=== PATIENT | male | born 1995 | race Caucasian/White ===

== ENCOUNTER 2022-12-22 20:56 | Emergency (ER) | payer OTHER, SELFPAY ==
--- NOTE | 2022-12-22 21:18 | ED.PSYCH ---
HPI - Psych General Time Seen by Provider: 21:18 <Bretha Lang MD - Last Filed: 12/24/22 10:17> Date Seen: 12/22/22 <Bertha Lang MD - Last Filed: 12/24/22 10:17> Chief Complaint: Psychiatric Problem/Disorder <Bertha Lang MD - Last Filed: 12/24/22 10:17> Stated Complaint: Suicidal <Bertha Lang MD - Last Filed: 12/24/22 10:17> Time Seen by Provider: 12/22/22 21:17 <Bertha Lang MD - Last Filed: 12/24/22 10:17> Source: patient <Bertha Lang MD - Last Filed: 12/24/22 10:17> Mode of arrival: ambulatory <Bertha Lang MD - Last Filed: 12/24/22 10:17> Limitations: no limitations <Bertha Lang MD - Last Filed: 12/24/22 10:17> History of Present Illness HPI Narrative: This 27-year-old male is coming in with concern of suicidal ideation with plan. He states he could not be alone at home anymore. He was thinking this weekend that he was going to purchase a gun and had plans to shoot himself. He has had some recent stressors. He broke up with a girlfriend earlier in the year, felt he was maybe using her as a crutch for his mental health. She just recently started dating someone in it has become very difficult for him to deal with, he feels quite emotional about it, is mad at himself, realizes the finality of his relationship with her. He does not do any cutting, notes he will punch himself for emotional release. He did graduate from [employer], went to the [facility] but dropped out after about a urine half I believe he said. He has just been working since then. Recently did start a new job. He states he has had a history of anxiety and depression. Admits that he attempted to kill himself in 2016 by trying to strangle himself with a blanket. In 2018 he states he took a whole bunch of apjp-bvm-[id number] medicines, went to bed that night and fortunately did wake up. He was never evaluated for any of these. He has never been hospitalized for his mental health. He has not drank alcohol for a couple months. He does admit that he has been taking Adderall which she has been purchasing from people, believes he has ADHD and will be tested for this in about a month and a half. He actually feels that the Adderall does help stabilize him and his anxiety. He initially purchased a 30 mg tablet and and was likely too high of a dose, had too many side effects. He took a 10 mg today which he did purchase from a friend and seems much better. He denies any other illicit drug use. <Bertha Lang MD - Last Filed: 12/24/22 10:17> complaint: suicidal ideation and feels depressed <Bertha Lang MD - Last Filed: 12/24/22 10:17> Related Data Home Medications: Home Medications Medication Instructions Recorded Confirmed No Known Home Medications 12/22/22 12/22/22 <Bertha Lang MD - Last Filed: 12/24/22 10:17> Allergies/Adverse Reactions: Allergies Allergy/AdvReac Type Severity Reaction Status Date / Time No Known Drug Allergies Allergy Verified 12/22/22 21:38 <Bertha Lang MD - Last Filed: 12/24/22 10:17> Review of Systems Status of ROS: Reports: 6 or more systems reviewed and unremarkable except as noted in History and below <Bertha Lang MD - Last Filed: 12/24/22 10:17> [facility] Social History: Social History Smoking Status: Never smoker How often do you have a drink containing alcohol: never AUDIT-C Alcohol total score: 0 Non-prescribed substance use: denies use <Bertha Lang MD - Last Filed: 12/24/22 10:17> Exam Const: Vital Signs, click to edit/add: Vital Signs - 24 hr 12/22/22 21:39 12/23/22 02:52 12/23/22 04:00 Temperature 97.8 F 97.5 F L Pulse Rate [Pulse Oximeter] 83 67 Respiratory Rate 14 16 Blood Pressure [Ri ght Upper Arm] 148/106 H 161/90 H 134/73 Pulse Oximetry 97 98 Oxygen Delivery Me thod Room Air Room Air This is a 27-year-old male that is alert, interactive, no apparent distress, very well kept. Speech is maybe a little fast and pressured, does have good eye contact. He smiles appropriately at times. Seems bit more anxious the necessarily depressed on my initial evaluation of him. Certainly does endorse suicidal ideation. Wearing glasses, conjugate gaze, sclerae are clear. Symmetrical facial function. Neck is supple, no masses, no thyromegaly masses or nodules. Lungs are clear, good air entry, no wheezing crackles. CV regular rate and rhythm, no murmur, normal S1-S2. No wound stover noted on his arms, wearing a short sleeve shirt. Is ambulatory into the ED of his own accord. <Bertha Lang MD - Last Filed: 12/24/22 10:17> Vital Signs, click to edit/add: Vital Signs - 24 hr 12/22/22 21:39 12/23/22 02:52 12/23/22 04:00 Temperature 97.8 F 97.5 F L Pulse Rate [Pulse Oximeter] 83 67 Respiratory Rate 14 16 Blood Pressure [Ri ght Upper Arm] 148/106 H 161/90 H 134/73 Pulse Oximetry 97 98 Oxygen Delivery Me thod Room Air Room Air <Antonia Angel MD - Last Filed: 12/24/22 08:30> Vital Signs, click to edit/add: Vital Signs - 24 hr 12/22/22 21:39 12/23/22 02:52 12/23/22 04:00 Temperature 97.8 F 97.5 F L Pulse Rate [Pulse Oximeter] 83 67 Respiratory Rate 14 16 Blood Pressure [Ri ght Upper Arm] 148/106 H 161/90 H 134/73 Pulse Oximetry 97 98 Oxygen Delivery Me thod Room Air Room Air <Jaymie Echols MD - Last Filed: 12/23/22 04:22> Documenting provider has reviewed patient's vital signs: yes <Bertha Lang MD - Last Filed: 12/24/22 10:17> Course Course ED Course: Patient needs a telehealth evaluation. We did discuss the process. Understands that he does need to provide blood work in urine to do testing in case he might need inpatient stabilization. He agrees to safety here, is here currently voluntarily. <Bertha Lang MD - Last Filed: 12/24/22 10:17> Patient needs a telehealth evaluation. We did discuss the process. Understands that he does need to provide blood work in urine to do testing in case he might need inpatient stabilization. He agrees to safety here, is here currently voluntarily. Patient was signed out to me by Dr. Matthews to follow up on labs and DEC assessment. I spoke with the DEC land checker, she does agree that he is high risk with a stated plan of proceeding a gun to shoot himself. She feels he needs inpatient placement. Labs are unremarkable, urinalysis is consistent with the ADHD med that he says he has been buying, otherwise negative. Tylenol, aspirin and alcohol levels all negative, COVID negative as well. Patient has remained cooperative here, voluntary at this time. <Antonia Angel MD - Last Filed: 12/24/22 08:30> Reevaluation(s) Time of Reevaluation #1: 04:21 <Jaymie Echols MD - Last Filed: 12/23/22 04:22> Reevaluation #1: Dr. Echols: Patient transferred to [facility] for inpatient treatment with no complications. Needed no further intervention nor changes to plan of care during my shift. <Jaymie Echols MD - Last Filed: 12/23/22 04:22> Vital Signs Vital signs: Initial Vital Signs Temperature 97.8 F 12/22/22 21:39 Temperature Source Temporal Artery Scan 12/22/22 21:39 Pulse Rate 83 12/22/22 21:39 Pulse Rhythm Regular 12/22/22 21:39 Respiratory Rate 14 12/22/22 21:39 Blood Pressure 148/106 H 12/22/22 21:39 Blood Pressure Mean 120 H 12/22/22 21:39 Blood Pressure Position Sitting 12/22/22 21:39 Pulse Oximetry 97 12/22/22 21:39 Oxygen Delivery Method Room Air 12/22/22 21:39 Vital Signs Temperature 97.8 F 12/22/22 21:39 Pulse Rate 83 12/22/22 21:39 Respiratory Rate 14 12/22/22 21:39 Blood Pressure 148/106 H 12/22/22 21:39 Pulse Oximetry 97 12/22/22 21:39 Oxygen Delivery Method Room Air 12/22/22 21:39 Temperature 97.5 F L 12/23/22 04:00 Pulse Rate 67 12/23/22 04:00 Respiratory Rate 16 12/23/22 04:00 Blood Pressure 134/73 12/23/22 04:00 Pulse Oximetry 98 12/23/22 04:00 Oxygen Delivery Method Room Air 12/23/22 04:00 <Bertha Lang MD - Last Filed: 12/24/22 10:17> Initial Vital Signs Temperature 97.8 F 12/22/22 21:39 Temperature Source Temporal Artery Scan 12/22/22 21:39 Pulse Rate 83 12/22/22 21:39 Pulse Rhythm Regular 12/22/22 21:39 Respiratory Rate 14 12/22/22 21:39 Blood Pressure 148/106 H 12/22/22 21:39 Blood Pressure Mean 120 H 12/22/22 21:39 Blood Pressure Position Sitting 12/22/22 21:39 Pulse Oximetry 97 12/22/22 21:39 Oxygen Delivery Method Room Air 12/22/22 21:39 Vital Signs Temperature 97.8 F 12/22/22 21:39 Pulse Rate 83 12/22/22 21:39 Respiratory Rate 14 12/22/22 21:39 Blood Pressure 148/106 H 12/22/22 21:39 Pulse Oximetry 97 12/22/22 21:39 Oxygen Delivery Method Room Air 12/22/22 21:39 Temperature 97.5 F L 12/23/22 04:00 Pulse Rate 67 12/23/22 04:00 Respiratory Rate 16 12/23/22 04:00 Blood Pressure 134/73 12/23/22 04:00 Pulse Oximetry 98 12/23/22 04:00 Oxygen Delivery Method Room Air 12/23/22 04:00 <Antonia Angel MD - Last Filed: 12/24/22 08:30> Initial Vital Signs Temperature 97.8 F 12/22/22 21:39 Temperature Source Temporal Artery Scan 12/22/22 21:39 Pulse Rate 83 12/22/22 21:39 Pulse Rhythm Regular 12/22/22 21:39 Respiratory Rate 14 12/22/22 21:39 Blood Pressure 148/106 H 12/22/22 21:39 Blood Pressure Mean 120 H 12/22/22 21:39 Blood Pressure Position Sitting 12/22/22 21:39 Pulse Oximetry 97 12/22/22 21:39 Oxygen Delivery Method Room Air 12/22/22 21:39 Vital Signs Temperature 97.8 F 12/22/22 21:39 Pulse Rate 83 12/22/22 21:39 Respiratory Rate 14 12/22/22 21:39 Blood Pressure 148/106 H 12/22/22 21:39 Pulse Oximetry 97 12/22/22 21:39 Oxygen Delivery Method Room Air 12/22/22 21:39 Temperature 97.5 F L 12/23/22 04:00 Pulse Rate 67 12/23/22 04:00 Respiratory Rate 16 12/23/22 04:00 Blood Pressure 134/73 12/23/22 04:00 Pulse Oximetry 98 12/23/22 04:00 Oxygen Delivery Method Room Air 12/23/22 04:00 <Jaymie Echols MD - Last Filed: 12/23/22 04:22> MDM - Psych Lab Data Labs: Lab Results 12/22/22 12/22/22 Range/Units 21:40 21:49 WBC 8.67 (4.50-11.00) K/uL RBC 5.76 (4.30-5.90) m/uL Hgb 16.3 (13.5-17.5) gm/dL Hct 47.9 (37.0-53.0) % MCV 83 (80-100) fL MCH 28 (26-34) pg MCHC 34 (32-36) gm/dL RDW Coeff of Zenia 12.5 (11.5-15.5) % Plt Count 244 (140-440) K/uL Neut % (Auto) 65.2 (42.0-72.0) % Lymph % (Auto) 23.1 (20-44) % [place] % (Auto) 9.9 (0.0-11.0) % Eos % (Auto) 0.8 (0.0-7.0) % Baso % (Auto) 0.1 (0.0-3.0) % Neut # (Auto) 5.65 (1.7-7.0) K/uL Lymph # (Auto) 2.00 (0.90-2.90) K/uL [place] # (Auto) 0.90 (0.00-0.90) K/UL Eos # (Auto) 0.07 (0.00-0.50) K/uL Baso # (Auto) 0.01 (0.00-0.30) K/uL Abs Immat Gran (auto) 0.08 (0.00-0.30) K/uL Imm/Tot Granulo (auto) 0.9 % Sodium 139 (135-149) mmol/L Potassium 4.0 (3.6-5.1) mmol/L Chloride 103 (96-114) mmol/L Carbon Dioxide 27 (20-32) mmol/L Anion Gap 9 (7-15) mEq/L BUN 15 (5-24) mg/dL Creatinine 1.2 (0.5-1.5) mg/dL Estimated Creat Clear 97.16 Estimated GFR 86 ml/min Glucose 92 (60-115) mg/dL Calcium 10.3 (8.4-10.6) mg/dL Total Bilirubin 0.7 (0.1-1.5) mg/dL AST 28 (12-35) U/L ALT 26 (4-50) U/L Alkaline Phosphatase 70 (40-150) U/L Total Protein 8.1 (6.0-8.3) g/dL Albumin 4.9 (3.3-5.0) g/dL TSH 2.510 (0.270-4.200) uIU/mL Salicylates < 1.0 L (1.0-10) mg/dL Urine Opiates Screen Negative (Negative) Ur Oxycodone Screen Negative (Negative) Urine Methadone Screen Negative (Negative) Ur Propoxyphene Screen Negative (Negative) Acetaminophen < 10.0 L (10.0-30.0) ug/mL Ur Barbiturates Screen Negative (Negative) U Tricyclic Antidepress Negative (Negative) Ur Phencyclidine Scrn Negative (Negative) Ur Amphetamines Screen POSITIVE A (Negative) U Methamphetamines Scrn Negative (Negative) U Benzodiazepines Scrn Negative (Negative) Urine Cocaine Screen Negative (Negative) U Marijuana (THC) Screen Negative (Negative) Ur Drug Screen Comment See Note Ethyl Alcohol < 0.01 L (0.01-0.03) % SARS-CoV-2 (PCR) Negative SARS-CoV-2 (Negative) <Bertha Lang MD - Last Filed: 12/24/22 10:17> Lab Results 12/22/22 12/22/22 Range/Units 21:40 21:49 WBC 8.67 (4.50-11.00) K/uL RBC 5.76 (4.30-5.90) m/uL Hgb 16.3 (13.5-17.5) gm/dL Hct 47.9 (37.0-53.0) % MCV 83 (80-100) fL MCH 28 (26-34) pg MCHC 34 (32-36) gm/dL RDW Coeff of Zenia 12.5 (11.5-15.5) % Plt Count 244 (140-440) K/uL Neut % (Auto) 65.2 (42.0-72.0) % Lymph % (Auto) 23.1 (20-44) % [place] % (Auto) 9.9 (0.0-11.0) % Eos % (Auto) 0.8 (0.0-7.0) % Baso % (Auto) 0.1 (0.0-3.0) % Neut # (Auto) 5.65 (1.7-7.0) K/uL Lymph # (Auto) 2.00 (0.90-2.90) K/uL [place] # (Auto) 0.90 (0.00-0.90) K/UL Eos # (Auto) 0.07 (0.00-0.50) K/uL Baso # (Auto) 0.01 (0.00-0.30) K/uL Abs Immat Gran (auto) 0.08 (0.00-0.30) K/uL Imm/Tot Granulo (auto) 0.9 % Sodium 139 (135-149) mmol/L Potassium 4.0 (3.6-5.1) mmol/L Chloride 103 (96-114) mmol/L Carbon Dioxide 27 (20-32) mmol/L Anion Gap 9 (7-15) mEq/L BUN 15 (5-24) mg/dL Creatinine 1.2 (0.5-1.5) mg/dL Estimated Creat Clear 97.16 Estimated GFR 86 ml/min Glucose 92 (60-115) mg/dL Calcium 10.3 (8.4-10.6) mg/dL Total Bilirubin 0.7 (0.1-1.5) mg/dL AST 28 (12-35) U/L ALT 26 (4-50) U/L Alkaline Phosphatase 70 (40-150) U/L Total Protein 8.1 (6.0-8.3) g/dL Albumin 4.9 (3.3-5.0) g/dL TSH 2.510 (0.270-4.200) uIU/mL Salicylates < 1.0 L (1.0-10) mg/dL Urine Opiates Screen Negative (Negative) Ur Oxycodone Screen Negative (Negative) Urine Methadone Screen Negative (Negative) Ur Propoxyphene Screen Negative (Negative) Acetaminophen < 10.0 L (10.0-30.0) ug/mL Ur Barbiturates Screen Negative (Negative) U Tricyclic Antidepress Negative (Negative) Ur Phencyclidine Scrn Negative (Negative) Ur Amphetamines Screen POSITIVE A (Negative) U Methamphetamines Scrn Negative (Negative) U Benzodiazepines Scrn Negative (Negative) Urine Cocaine Screen Negative (Negative) U Marijuana (THC) Screen Negative (Negative) Ur Drug Screen Comment See Note Ethyl Alcohol < 0.01 L (0.01-0.03) % SARS-CoV-2 (PCR) Negative SARS-CoV-2 (Negative) <Antonia Angel MD - Last Filed: 12/24/22 08:30> Lab Results 12/22/22 12/22/22 Range/Units 21:40 21:49 WBC 8.67 (4.50-11.00) K/uL RBC 5.76 (4.30-5.90) m/uL Hgb 16.3 (13.5-17.5) gm/dL Hct 47.9 (37.0-53.0) % MCV 83 (80-100) fL MCH 28 (26-34) pg MCHC 34 (32-36) gm/dL RDW Coeff of Zenia 12.5 (11.5-15.5) % Plt Count 244 (140-440) K/uL Neut % (Auto) 65.2 (42.0-72.0) % Lymph % (Auto) 23.1 (20-44) % [place] % (Auto) 9.9 (0.0-11.0) % Eos % (Auto) 0.8 (0.0-7.0) % Baso % (Auto) 0.1 (0.0-3.0) % Neut # (Auto) 5.65 (1.7-7.0) K/uL Lymph # (Auto) 2.00 (0.90-2.90) K/uL [place] # (Auto) 0.90 (0.00-0.90) K/UL Eos # (Auto) 0.07 (0.00-0.50) K/uL Baso # (Auto) 0.01 (0.00-0.30) K/uL Abs Immat Gran (auto) 0.08 (0.00-0.30) K/uL Imm/Tot Granulo (auto) 0.9 % Sodium 139 (135-149) mmol/L Potassium 4.0 (3.6-5.1) mmol/L Chloride 103 (96-114) mmol/L Carbon Dioxide 27 (20-32) mmol/L Anion Gap 9 (7-15) mEq/L BUN 15 (5-24) mg/dL Creatinine 1.2 (0.5-1.5) mg/dL Estimated Creat Clear 97.16 Estimated GFR 86 ml/min Glucose 92 (60-115) mg/dL Calcium 10.3 (8.4-10.6) mg/dL Total Bilirubin 0.7 (0.1-1.5) mg/dL AST 28 (12-35) U/L ALT 26 (4-50) U/L Alkaline Phosphatase 70 (40-150) U/L Total Protein 8.1 (6.0-8.3) g/dL Albumin 4.9 (3.3-5.0) g/dL TSH 2.510 (0.270-4.200) uIU/mL Salicylates < 1.0 L (1.0-10) mg/dL Urine Opiates Screen Negative (Negative) Ur Oxycodone Screen Negative (Negative) Urine Methadone Screen Negative (Negative) Ur Propoxyphene Screen Negative (Negative) Acetaminophen < 10.0 L (10.0-30.0) ug/mL Ur Barbiturates Screen Negative (Negative) U Tricyclic Antidepress Negative (Negative) Ur Phencyclidine Scrn Negative (Negative) Ur Amphetamines Screen POSITIVE A (Negative) U Methamphetamines Scrn Negative (Negative) U Benzodiazepines Scrn Negative (Negative) Urine Cocaine Screen Negative (Negative) U Marijuana (THC) Screen Negative (Negative) Ur Drug Screen Comment See Note Ethyl Alcohol < 0.01 L (0.01-0.03) % SARS-CoV-2 (PCR) Negative SARS-CoV-2 (Negative) <Jaymie Echols MD - Last Filed: 12/23/22 04:22> Discharge Plan Discharge Clinical Impression: Suicidal ideation <Bertha Lang MD - Last Filed: 12/24/22 10:17> Patient Disposition: Xfer Psychiatric Hosp <Bertha Lang MD - Last Filed: 12/24/22 10:17> Prescriptions: No Action No Known Home Medications <Bertha Lang MD - Last Filed: 12/24/22 10:17> Stand Alone Forms: MyHealth Info Instructions <Bertha Lang MD - Last Filed: 12/24/22 10:17>
[2022-12-22 21:39] VITALS: BP 148/106; PULSE 83; RESP 14; TEMP 36.6; O2SAT 97; BMI 26.1
[2022-12-22 21:57] LABS: Amphetamine Screen Urine POSITIVE (Negative); Barbiturate Screen Urine Negative (Negative); Benzodiazepines Screen Urine Negative (Negative); Cannabinoid Screen Urine Negative (Negative); Cocaine Screen Urine Negative (Negative); Methadone Screen Urine Negative (Negative); Methamphetamines Screen Urine Negative (Negative); Opiate Screen Urine Negative (Negative); Oxycodone Screen Urine Negative (Negative); Phencyclidine Screen Urine Negative (Negative); Tricyclic Antidepressant Urine Negative (Negative)
[2022-12-22 22:00] LABS: Basophils Absolute Auto 0.01 K/uL (0.00-0.30); Basophils Percent Auto 0.1 % (0.0-3.0); Eosinophils Absolute Auto 0.07 K/uL (0.00-0.50); Eosinophils Percent Auto 0.8 % (0.0-7.0); Hematocrit 47.9 % (37.0-53.0); Hemoglobin* 16.3 gm/dL (13.5-17.5); Immature Granulocytes Abs Auto 0.08 K/uL (0.00-0.30); Immature Granulocytes Pct Auto 0.9 %; Lymphocytes Percent Auto 23.1 % (20-44); Mean Corpuscular HGB Conc 34 gm/dL (32-36); Mean Corpuscular Hemoglobin 28 pg (26-34); Mean Corpuscular Volume 83 fL (80-100); Monocytes Percent Auto 9.9 % (0.0-11.0); Neutrophils Absolute Auto 5.65 K/uL (1.7-7.0); Neutrophils Percent Auto 65.2 % (42.0-72.0); Platelet Count* 244 K/uL (140-440); RDW Coefficient of Variation % 12.5 % (11.5-15.5); Red Blood Count 5.76 m/uL (4.30-5.90); White Blood Count* 8.67 K/uL (4.50-11.00)
[2022-12-22 22:01] LABS: Slide Review Reflex No
[2022-12-22 22:09] LABS: Albumin* 4.9 g/dL (3.3-5.0); Chloride* 103 mmol/L (96-114); Sodium* 139 mmol/L (135-149)
[2022-12-22 22:12] LABS: Alkaline Phosphatase* 70 U/L (40-150); Anion Gap 9 mEq/L (7-15); Aspartate Amino Transferase* 28 U/L (12-35); Bilirubin Total* 0.7 mg/dL (0.1-1.5); Blood Urea Nitrogen* 15 mg/dL (5-24); Calcium* 10.3 mg/dL (8.4-10.6); Carbon Dioxide* 27 mmol/L (20-32); Creatinine* 1.2 mg/dL (0.5-1.5); Est. Creatinine Clearance* 97.16; Estimated Glomerular Filt Rate 86 ml/min; Glucose* 92 mg/dL (60-115); Total Protein* 8.1 g/dL (6.0-8.3)
[2022-12-22 22:13] LABS: Alanine Aminotransferase* 26 U/L (4-50)
[2022-12-22 22:21] LABS: Acetaminophen* < 10.0 ug/mL (10.0-30.0); Ethanol* < 0.01 % (0.01-0.03); Salicylate* < 1.0 mg/dL (1.0-10)
[2022-12-22 22:34] LABS: SARS PCR* Negative SARS-CoV-2 (Negative)
--- NOTE | 2022-12-23 01:25 | ED.NURSE ---
Pt updated with plan of care, Pt agreeable and cooperative. Pt rights read at 2200, copy provided to Pt. Pt declines snack, more water at this time. Warm blankets provided. Pt brushing teeth. Call light within reach.
--- NOTE | 2022-12-23 01:30 | ED.NURSE ---
Report given to TACO Van.
[2022-12-23 02:52] VITALS: BP 161/90
[2022-12-23 04:00] VITALS: BP 134/73; PULSE 67; RESP 16; TEMP 36.4; O2SAT 98
--- NOTE | 2022-12-23 04:12 | ED.NURSE ---
Report to [facility] Wallace Segovia RN. Report to [facility] EMT, Guillermo. Patient left department via [facility] with all belongings.
--- NOTE | 2022-12-23 07:39 | ED.NURSE ---
Patient's mother called about the patient's transfer information, and then had to hang up. Attempted to call her back at number provided/in chart several times with your call cannot go through error message.
== END 2022-12-23 04:20 ==
PROVIDERS: Family Medicine; Emergency Provider Emergency Medicine; PCP Family Medicine
DX: R45.851 Suicidal ideations (principal)
CPT/HCPCS: 36415; 80053; 80143; 80179; 80306; 82077; 84443; 85025; 87635; 99284; A0425; A0428

== ENCOUNTER 2023-06-03 05:25 | Emergency (ER) | payer OTHER, SELFPAY ==
[2023-06-03 05:38] VITALS: BP 149/98; PULSE 91; RESP 16; TEMP 37.1; O2SAT 99; BMI 25.1
[2023-06-03 06:29] LABS: Appearance Urine Clear (Clear); Bilirubin Urine Negative (Negative); Blood Urine Negative (Negative); Color Urine Yellow (Yellow); Glucose Urine Negative (Negative); Ketones Urine Negative (Negative); Leukocyte Esterase Urine Negative (Negative); Nitrite Urine Negative (Negative); Protein Urine Negative (Negative); Specific Gravity Urine 1.025 (1.000-1.030); Urobilinogen Urine 0.2 (0.2-1.0)
--- NOTE | 2023-06-03 06:37 | CT_ITS ---
Final Report Patient: DARY ROJAS Facility:?[facility] Patient ID:?[id number] Site Patient ID:?[id number] Site :?[id number] Study:?CT Abdomen/Pelvis W/ 85CC ISOVUE 370-06/03/2023 7:29:06 AM Ordering Physician:NURY Final Report: INDICATION: Right lower quadrant pain COMPARISON: None. TECHNIQUE: CT of the abdomen and pelvis with intravenous contrast. Multiplanar reformats are included. Contrast: 85 mL Isovue 370 FINDINGS: Lung bases: Normal. Liver: Normal. No mass. Gallbladder and bile ducts: Normal gallbladder. No bile duct dilation. Pancreas: Normal. Spleen: Normal. Adrenal glands: Normal. Kidneys: Normal parenchyma. No cyst or solid mass. No calculi. No urinary tract dilation. Urinary bladder: Circumferentially thickened urinary bladder wall. Vessels: Normal. Pelvis: Peripherally inflamed fat lobule in the distal sigmoid colon. Bowel: Large stool burden. No dilated or inflamed appearing bowel. The appendix is normal. Lymph nodes: No adenopathy. Peritoneum: No ascites. Bones: No fractures. No focal worrisome bone lesions. Abdominal wall: No hernia. IMPRESSION: 1. Distal sigmoid epiploic appendagitis. 2. Circumferential bladder wall thickening with mild distention may indicate cystitis. Correlate with symptoms and labs. 3. Large stool burden. Normal appendix. Please note that all CT scans at this facility use dose modulation, iterative reconstruction, and/or weight-based dosing when appropriate to reduce radiation dose to as low as reasonably achievable. Dictated by Zo Stuart MD @ 06/03/2023 7:37:43 AM (Electronic Signature)
--- NOTE | 2023-06-03 06:41 | ED.GENADULT ---
HPI - General Adult General Chief complaint: Groin Pain Stated complaint: groin pain Time Seen by Provider: 06/03/23 05:41 Source: patient Mode of arrival: ambulatory History of Present Illness HPI narrative: 28-year-old male with no significant prior intra-abdominal history presents to the emergency department for evaluation of right lower quadrant and pelvic area pain. It has been present for 4 days, intermittently and not terribly bothersome but became much worse at around 4:00 a.m.. Accompanied by nausea. Now is more constant. Vaguely in diffusely in the lower abdomen radiates down into the right groin area. No dysuria or frequency or flank pain. No hematuria, no diarrhea. Has been having normal bowel movements he thinks with no signs of constipation. No vomiting. No excessive alcohol use. Did try taking 400 mg of ibuprofen about an hour prior to coming to the ED and did have some partial improvement in his symptoms. No prior history of similar symptoms. No history of inflammatory bowel disease or prior GI surgeries. No prior endoscopy or colonoscopy reported. No fever. Has some vague pelvic pain but not really genital pain. Nothing specifically in the testicles or penis. Past medical history notable for ADHD. Home medication is Dexedrine for ADHD, no other medications. No allergies. Nonsmoker with no drug use. ROS notable for the abdominal symptoms as described above. Otherwise denies times 12 systems. Related Data Previous Rx's Medication Instructions Recorded amoxicillin 875 mg-potassium 1 tab PO Q12H #14 tabs 06/03/23 clavulanate 125 mg tablet ondansetron 4 mg disintegrating 4 mg PO Q6H PRN nausea and 06/03/23 tablet vomiting #10 tabs Allergies Allergy/AdvReac Type Severity Reaction Status Date / Time No Known Drug Allergies Allergy Verified 12/22/22 21:38 PFSH PFSH Social History Smoking Status: Never smoker How often do you have a drink containing alcohol: never AUDIT-C Alcohol total score: 0 Non-prescribed substance use: denies use Exam Const: Vital Signs, click to edit/add: Vital Signs - 24 hr 06/03/23 05:38 Temperature 98.7 F Pulse Rate [Pulse Oximeter] 91 Respiratory Rate 16 Blood Pressure [Ri ght Upper Arm] 149/98 H Pulse Oximetry 99 Oxygen Delivery Me thod Room Air Documenting provider has reviewed patient's vital signs: yes Common normals: no apparent distress and oriented x3 General appearance: cooperative and well kempt HENMT: Common normals: normocephalic Head and scalp: normocephalic Face and sinus: normal facial exam Mouth: oral and palatal mucosa normal Throat: posterior oropharynx normal Eye: Common normals: conjunctivae normal General eye: normal appearance of both eyes Conjunctiva: conjunctiva(e) normal Neck & C-Spine: Common normals: full ROM and no lymphadenopathy Resp: Common normals: normal respiratory effort, no use of accessory muscles and clear to auscultation bilaterally Effort & inspection: able to speak in complete sentences Auscultation: clear to auscultation bilaterally Cardio: Common normals: regular rate, regular rhythm, S1 normal heart sound, S2 normal heart sound and no murmurs Rate: regular rate Rhythm: regular rhythm Heart sounds: S1 normal and S2 normal GI: Common normals: Normal to inspection, nondistended, normoactive bowel sounds present, no hepatosplenomegaly and no masses Palpation: no hepatosplenomegaly Other: Tender diffusely but much more localizing in the right lower quadrant with even a little bit of guarding. No rebound tenderness. No obvious mass. : Other: Testes normal bilaterally with no tenderness or mass. No signs of hernias. Extremity: Common normals: normal to inspection and normal capillary refill Neuro: Common normals: oriented x3, moves all extremities and no focal motor deficits Speech: speech normal Psych: Appearance: well kempt Attitude: engaged Activity/motor behavior: appropriate eye contact Thought content: normal thought content Insight: insight good Judgement: judgment good Skin: Common normals: no rashes or lesions noted General skin exam: no rashes or lesions noted Course Course ED Course: Differential diagnosis including most likely appendicitis but also concern for pelvic infection, urinary tract infection, STD, colitis, kidney stone, bowel obstruction, among others. He declines pain medication at this time, does accept offer for nausea medication. Zofran 4 mg x 1. Obtain CT of the abdomen and pelvis, typical labs and start normal saline. Await findings. Reevaluation(s) Time of Reevaluation #1: 07:45 Reevaluation #1: Counseled patient on labs and imaging findings. CT consistent with epiploic appendagitis and he does have some bladder wall thickening. I do think this is the etiology of his symptoms. No fevers or signs of sepsis. Will start patient on Augmentin. Discussed nausea controlled with Zofran as needed. Tylenol and ibuprofen as needed for comfort. Alarm symptoms of sepsis, worsening infection reviewed as indications to come back to the ED. follow-up with primary care if not improving in 3 days. Counseled there is some constipation but the Augmentin will most certainly take care of that and I do not recommend additional stool softeners or laxatives. Vital Signs Vital signs: Initial Vital Signs Temperature 98.7 F 06/03/23 05:38 Temperature Source Temporal Artery Scan 06/03/23 05:38 Pulse Rate 91 06/03/23 05:38 Respiratory Rate 16 06/03/23 05:38 Blood Pressure 149/98 H 06/03/23 05:38 Blood Pressure Mean 115 H 06/03/23 05:38 Blood Pressure Position Sitting 06/03/23 05:38 Pulse Oximetry 99 06/03/23 05:38 Oxygen Delivery Method Room Air 06/03/23 05:38 Vital Signs Temperature 98.7 F 06/03/23 05:38 Pulse Rate 91 06/03/23 05:38 Respiratory Rate 16 06/03/23 05:38 Blood Pressure 149/98 H 06/03/23 05:38 Pulse Oximetry 99 06/03/23 05:38 Oxygen Delivery Method Room Air 06/03/23 05:38 Temperature 98.7 F 06/03/23 05:38 Pulse Rate 91 06/03/23 05:38 Respiratory Rate 16 06/03/23 05:38 Blood Pressure 149/98 H 06/03/23 05:38 Pulse Oximetry 99 06/03/23 05:38 Oxygen Delivery Method Room Air 06/03/23 05:38 Medications Administered Medications: Discontinued Medications Generic Name Dose Route Start Last Admin Trade Name Freq PRN Reason Stop Dose Admin Sodium Chloride 1,000 mls @ 1,000 mls/hr 06/03/23 06:38 06/03/23 06:49 0.9 % Sodium Chloride 1000 Ml IV 06/03/23 07:37 1,000 mls/hr .Q1H JOSE M Administration Ondansetron HCl 4 mg 06/03/23 06:37 06/03/23 06:49 Ondansetron 2 Mg/Ml Inj IVP 06/03/23 06:38 4 mg ONCE ONE Administration Medical Decision Making Lab Data Lab results reviewed: Yes I reviewed the patient's lab results Lab results narrative: Leukocytosis with left shift, normal kidney function and electrolytes. No significant elevation of inflammatory markers or signs of bladder infection. Patient will be contact regarding gonorrhea and chlamydia, that was discussed with him. Labs: Lab Results 06/03/23 06/03/23 Range/Units 06:00 06:45 WBC 12.38 H (4.50-11.00) K/uL RBC 5.28 (4.30-5.90) m/uL Hgb 15.5 (13.5-17.5) gm/dL Hct 45.6 (37.0-53.0) % MCV 86 (80-100) fL MCH 29 (26-34) pg MCHC 34 (32-36) gm/dL RDW Coeff of Zenia 12.5 (11.5-15.5) % Plt Count 199 (140-440) K/uL Neut % (Auto) 82.6 H (42.0-72.0) % Lymph % (Auto) 9.5 L (20-44) % Pierce % (Auto) 7.1 (0.0-11.0) % Eos % (Auto) 0.5 (0.0-7.0) % Baso % (Auto) 0.1 (0.0-3.0) % Neut # (Auto) 10.20 H (1.7-7.0) K/uL Lymph # (Auto) 1.20 (0.90-2.90) K/uL Pierce # (Auto) 0.90 (0.00-0.90) K/UL Eos # (Auto) 0.10 (0.00-0.50) K/uL Baso # (Auto) 0.00 (0.00-0.30) K/uL Abs Immat Gran (auto) 0.00 (0.00-0.30) K/uL Imm/Tot Granulo (auto) 0.2 % Sodium 137 (135-149) mmol/L Potassium 3.7 (3.6-5.1) mmol/L Chloride 103 (96-114) mmol/L Carbon Dioxide 27 (20-32) mmol/L Anion Gap 7 (7-15) mEq/L BUN 19 (5-24) mg/dL Creatinine 0.7 (0.5-1.5) mg/dL Estimated Creat Clear 165.12 Estimated GFR 130 ml/min Glucose 146 H (60-115) mg/dL Calcium 9.5 (8.4-10.6) mg/dL Total Bilirubin 0.2 (0.1-1.5) mg/dL AST 23 (12-35) U/L ALT 21 (4-50) U/L Alkaline Phosphatase 84 (40-150) U/L C-Reactive Protein 0.5 (0.5-1.0) mg/dL Total Protein 7.2 (6.0-8.3) g/dL Albumin 4.4 (3.3-5.0) g/dL Urine Color Yellow (Yellow) Urine Appearance Clear (Clear) Urine pH 7.0 (5.0-8.5) Ur Specific [place] 1.025 (1.000-1.030) Urine Protein Negative (Negative) Urine Glucose (UA) Negative (Negative) Urine Ketones Negative (Negative) Urine Blood Negative (Negative) Urine Nitrite Negative (Negative) Urine Bilirubin Negative (Negative) Urine Urobilinogen 0.2 (0.2-1.0) Ur Leukocyte Esterase Negative (Negative) Imaging Data CT scan - abdomen: Attestation: I have reviewed the pertinent imaging results. My impression: Bladder wall thickening and lower pelvic inflammation but no signs of appendicitis or obstruction. Radiologist's impression: IMPRESSION: 1. Distal sigmoid epiploic appendagitis. 2. Circumferential bladder wall thickening with mild distention may indicate cystitis. Correlate with symptoms and labs. 3. Large stool burden. Normal appendix. Discharge Plan Discharge Clinical Impression: Epiploic appendagitis Patient Disposition: Home, Self-Care Condition: Stable Instructions: Colitis (ED) Additional Instructions: You have an inflammation of the lower part of your colon deep down in your pelvis. There are no signs of rupture, abscess or severe infection. This is good news. Your appendix is normal. I recommend antibiotics. Prescribed Augmentin 1 pill 2 times daily for a week. Your 1st dose was given here in the emergency department. He will continue taking this at home, your next dose is due this evening. It is okay to use Tylenol 1000 mg every 6 hours and or ibuprofen 600 mg every 6 hours for discomfort. You may have some low-grade fevers for up to 24 hours but then should improve. If you start running high fevers, feel very weak or ill or start having bloody stools, you should come back to the emergency department. It is okay to eat a typical diet. The written instructions provided for colitis are not quite the same as what you have going on but the warning signs and basic care is similar. As discussed, the antibiotic will likely give you loose stools. It would be okay for you to use Imodium to combat any diarrhea if this occurs. Activity Level: Activity as Tolerated Discharge Diet: Regular Prescriptions: New amoxicillin-pot clavulanate 875-125 mg tablet 1 tab PO Q12H Qty: 14 0RF ondansetron 4 mg tablet,disintegrating 4 mg PO Q6H PRN (Reason: nausea and vomiting) Qty: 10 0RF Follow Up/Referrals: Nithin Marcelino MD [Staff Physician] - Stand Alone Forms: [employer] Info Instructions
[2023-06-03] MEDS: 0.9 % SODIUM CHLORIDE 1000 ml 1,000 ML IV (06:49)
[2023-06-03] MEDS: ONDANSETRON 2 MG/ML inj 4 MG IVP (06:49)
[2023-06-03 07:04] LABS: Basophils Percent Auto 0.1 % (0.0-3.0); Eosinophils Percent Auto 0.5 % (0.0-7.0); Hematocrit 45.6 % (37.0-53.0); Hemoglobin* 15.5 gm/dL (13.5-17.5); Immature Granulocytes Pct Auto 0.2 %; Lymphocytes Percent Auto 9.5 % (20-44); Mean Corpuscular HGB Conc 34 gm/dL (32-36); Mean Corpuscular Hemoglobin 29 pg (26-34); Mean Corpuscular Volume 86 fL (80-100); Monocytes Percent Auto 7.1 % (0.0-11.0); Neutrophils Percent Auto 82.6 % (42.0-72.0); Platelet Count* 199 K/uL (140-440); RDW Coefficient of Variation % 12.5 % (11.5-15.5); Red Blood Count 5.28 m/uL (4.30-5.90); White Blood Count* 12.38 K/uL (4.50-11.00)
[2023-06-03 07:22] LABS: Albumin* 4.4 g/dL (3.3-5.0); Chloride* 103 mmol/L (96-114); Slide Review Reflex No
[2023-06-03 07:23] LABS: Potassium* 3.7 mmol/L (3.6-5.1); Sodium* 137 mmol/L (135-149)
[2023-06-03 07:25] LABS: Alanine Aminotransferase* 21 U/L (4-50); Alkaline Phosphatase* 84 U/L (40-150); Anion Gap 7 mEq/L (7-15); Aspartate Amino Transferase* 23 U/L (12-35); Bilirubin Total* 0.2 mg/dL (0.1-1.5); Blood Urea Nitrogen* 19 mg/dL (5-24); Carbon Dioxide* 27 mmol/L (20-32); Creatinine* 0.7 mg/dL (0.5-1.5); Est. Creatinine Clearance* 165.12; Estimated Glomerular Filt Rate 130 ml/min; Total Protein* 7.2 g/dL (6.0-8.3)
[2023-06-03 07:26] LABS: Calcium* 9.5 mg/dL (8.4-10.6); Glucose* 146 mg/dL (60-115)
[2023-06-03 07:28] LABS: C Reactive Protein* 0.5 mg/dL (0.5-1.0)
[2023-06-03 08:04] LABS: Chlamydia DNA Amplified* NOT DETECTED (No Detected); GC DNA Amplified* NOT DETECTED (No Detected)
[2023-06-03] MEDS: AMOXICILLIN/CLAVULANATE 875 mg/125 mg TABLET PO (08:11)
== END 2023-06-03 08:11 | disposition home or self-care (01) ==
PROVIDERS: Emergency Provider Family Medicine; PCP Family Medicine
DX: K63.89 Other specified diseases of intestine (principal)
CPT/HCPCS: 36415; 74177; 80053; 81003; 85025; 86140; 87491; 87591; 96374; 99284; A9270; J2405; J7030; Q9967